=== PATIENT | female | born 1985 | race Caucasian/White ===

== ENCOUNTER 2017-04-22 16:32 | Emergency (ER) | payer BC ==
[~2017-04-22 16:32] MED LIST: AMITRYPTYLINE PO; ATARAX PO; BACLOFEN10 MG PO; BIRTH CONTROL PILL PO; CIPRO PO; DOXYCYCLINE PO; ELMIRON; ENTEX LA T1 TAB.SR .; IBUPROFEN PO; KEFLEX PO; NAPROSYN500 MG PO; OMNICEF; PHENERGAN PO; PYRIDIUM PO; UTIRA C PO
== END 2017-04-22 20:06 | disposition home or self-care (01) ==
LOC: CED 16:32 → CFTX 16:32
DX: L05.01 Pilonidal cyst with abscess (principal); Z88.0 Allergy status to penicillin; Z88.2 Allergy status to sulfonamides; Z88.8 Allergy status to other drugs, medicaments and biological substances
CPT/HCPCS: 99283